=== PATIENT | female | born 1960 | race Caucasian/White ===

== ENCOUNTER 2018-03-15 12:17 | Day surgery (SDC) | payer BC ==
[2018-03-15] MEDS ORDERED: PROPOFOL 40 ML (15:47)
[2018-03-15] MEDS ORDERED: LIDOCAINE 2% (SDV) 5 ML INJ (15:47)
== END 2018-03-15 18:23 | disposition home or self-care (01) ==
LOC: GIL 12:17
DX: Z12.11 Encounter for screening for malignant neoplasm of colon (principal); D12.2 Benign neoplasm of ascending colon; D17.5 Benign lipomatous neoplasm of intra-abdominal organs; K64.8 Other hemorrhoids
CPT/HCPCS: 45380; 88305